=== PATIENT | male | born 1960 | race Caucasian/White ===

== ENCOUNTER 2017-08-04 07:18 | Day surgery (SDC) | payer OTHER ==
[~2017-08-04] VITALS: Ht 190.5 cm; Wt 94.8 kg
[~2017-08-04 07:18] MED LIST: GUAI600T33 PO; Hair, Skin & N1 EACH PO; SYNTHROID0.2 MG PO
== END 2017-08-04 10:44 | disposition home or self-care (01) ==
LOC: ORSCMMR 07:18
PROVIDERS: Surgery
PROC: 0YU50JZ Supplement Right Inguinal Region with Synthetic Substitute, Open Approach (ICD-10-PCS; principal; 2017-08-04 08:45)
DX: K40.90 Unilateral inguinal hernia, without obstruction or gangrene, not specified as recurrent (principal); E03.9 Hypothyroidism, unspecified; F17.210 Nicotine dependence, cigarettes, uncomplicated; Z79.899 Other long term (current) drug therapy
CPT/HCPCS: C1781; J0690; J1100; J2250; J2405; J3010; J7120